=== PATIENT | male | born 1990 | race Caucasian/White ===

== ENCOUNTER 2018-03-25 08:16 | Emergency (ER) | payer OTHER, SELFPAY ==
[2018-03-25 08:19] VITALS: BP 141/89; PULSE 89; RESP 19; TEMP 37.1; O2SAT 98; BMI 21.7
[2018-03-25 09:14] LABS: Absolute Lymphocyte Count 1.24 X10^3/ul (0.83-4.51); Absolute Neutrophil Count 2.7 X10^3/uL (2.0-7.7); Basophil# 0.02 X10^3/uL; Basophil% 0.5 % (0-1); Eosinophil# 0.02 X10^3/uL; Eosinophils% 0.5 % (0-5); Hematocrit 45.9 % (40-54); Hemoglobin 15.4 g/dl (13.0-16.5); Lymphocyte # 1.24 X10^3/ul (4.0); Lymphocyte % 28.4 % (19-41); Mean Corp Hgb Conc 33.6 g/gl (32-36); Mean Corpuscular Hgb 30.4 pg (27.0-32.0); Mean Corpuscular Volume 90.5 fL (80-94); Mean Platelet Vol. 9.9 fl (6.2-12.0); Monocyte# 0.35 X10^3/uL; Neutrophil # 2.74 X10^3/uL (2.7-7.7); Neutrophil % 62.6 % (47-70); Platelet Count 295 K/mm3 (150-450); RBC Distribution Width CV 12.3 % (11.6-14.6); RBC Distribution Width SD 40.6 fl (35.1-43.9); Red Blood Count 5.07 M/mm3 (4.6-6.2); White Blood Count 4.4 K/mm3 (4.4-11.0)
[2018-03-25 09:15] LABS: POSITIVE COUNT NO; POSITIVE DIFFERENTIAL NO; POSITIVE MORPHOLOGY NO
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
[2018-03-25 09:31] LABS: Anion Gap 11 (5-15); BUN 12 mg/dL (7-18); Chloride 104 mmol/L (98-107); EST Glomerular Filtration Rate 95 mL/min (>60); Est Glom Filt Rate - Afr Amer 115 mL/min (>60); Glucose 90 mg/dL (74-106); Potassium 3.9 mmol/L (3.5-5.1); Sodium Level 141 mmol/L (136-145)
[2018-03-25 09:34] LABS: Alcohol, Blood (Medical)-Serum < 3.0 mg/dL
[2018-03-25 10:05] VITALS: RESP 18
[2018-03-25 10:05] LABS: Amphetamine Urine VISTA NEGATIVE (<1000 ng/mL); Barbiturate Urine VISTA NEGATIVE (< 200 ng/mL); Benzodiazepine Urine VISTA NEGATIVE (< 200 ng/mL); Cocaine Urine VISTA NEGATIVE (< 300 ng/mL); Ecstacy Urine VISTA NEGATIVE (< 500 ng/mL); Methadone Urine VISTA NEGATIVE (< 300 ng/mL); PCP Urine VISTA NEGATIVE (< 25 ng/mL); THC Urine VISTA NEGATIVE (< 50 ng/mL); Vista UDS pH Range 7
--- NOTE | 2018-03-25 10:37 | ED.RN ---
SPOKE WITH LUCIA GARCIA; NEYMAR IS CURRENTLY ON MS AND HE IS AT THE OFFICE; ONE OF THEM WILL BE IN TO EVAL PT
[2018-03-25 11:09] VITALS: RESP 20
[2018-03-25 13:20] VITALS: RESP 18
--- NOTE | 2018-03-25 13:31 | ED.RN ---
pt given snack, lunch tray will be ordered. informed that rn nicu was here, had to step out but would return shortly. pt conveys understanding. denies further needs at this.
[2018-03-25 15:13] VITALS: RESP 18
== END 2018-03-25 15:20 | disposition home or self-care (01) ==
PROVIDERS: Emergency Provider Emergency Medicine
DX: F32.9 Major depressive disorder, single episode, unspecified (principal); R45.851 Suicidal ideations; Z91.5 Personal history of self-harm
CPT/HCPCS: 80048; 80307; 80320; 85025; 99283; A4216; G0480